=== PATIENT | male | born 1965 | race Caucasian/White ===

== ENCOUNTER 2018-07-05 06:03 | Day surgery (SDC) | payer OTHER ==
[~2018-07-05] VITALS: Ht 172.7 cm; Wt 89.8 kg
[2018-07-05] MEDS ORDERED: PROCHLORPERAZINE 10 MG/2 ML VIAL. IV PRN (07:00)
[2018-07-05] MEDS ORDERED: MORPHINE SULFATE 4 MG/ML VIAL. IV PRN (07:00)
[2018-07-05] MEDS ORDERED: fentaNYL PF VIAL 100 MCG/2 ML VIAL IV PRN (07:00)
[2018-07-05] MEDS ORDERED: LIDOCAINE 1% PF 2 ML VIAL. ID PRN (07:00)
[2018-07-05] MEDS ORDERED: ONDANSETRON PF 4 MG/2 ML VIAL. IV PRN (07:00)
[2018-07-05] MEDS ORDERED: IV RINGERS,LACTATED 1000ML 1,000 ML IV SCH (07:00)
[2018-07-05] MEDS ORDERED: HYDROmorphone 2 MG/ML VIAL IV PRN (07:00)
[2018-07-05] MEDS ORDERED: BUPIVACAINE-EPI 0.25%-1:200000 MPF 30 ML VIAL. ONE (07:05)
[2018-07-05] MEDS ORDERED: ONDANSETRON PF 4 MG/2 ML VIAL. ONE (07:40)
[2018-07-05] MEDS ORDERED: PROPOFOL 20 ML IV ONE ×2 (07:40→09:20)
[2018-07-05] MEDS ORDERED: fentaNYL PF VIAL 100 MCG/2 ML VIAL ONE (07:40)
[2018-07-05] MEDS ORDERED: LIDOCAINE 2% PF Vial for OR 5 ML VIAL. ONE (07:40)
[2018-07-05] MEDS ORDERED: DEXAMETHASONE SOD PHOS 20 MG/5 ML VIAL. ONE (07:40)
[2018-07-05] MEDS ORDERED: ROCURONIUM 50 MG/5 ML VIAL. ONE (07:40)
[2018-07-05] MEDS ORDERED: MIDAZOLAM HCL/PF 2 MG/2 ML VIAL. ONE (07:41)
[2018-07-05] MEDS ORDERED: PHENYLEPHRINE 10 MG/ML VIAL. ONE (08:25)
[2018-07-05] MEDS ORDERED: FAMOTIDINE 20 MG/2 ML VIAL ONE (08:28)
[2018-07-05] MEDS ORDERED: NEOSTIGMINE 10 MG/10 ML VIAL. ONE (08:51)
[2018-07-05] MEDS ORDERED: GLYCOPYRROLATE 1 MG/5 ML VIAL. ONE (08:51)
[2018-07-05] MEDS ORDERED: DESFLURANE 61 TO 120 MINUTES IH ONE (09:10)
--- NOTE | 2018-07-05 09:11 | PDOC4 ---
Operative Note Operative Note Date: 07/05/2018 Preoperative diagnosis: Ventral hernia with diastases Operative diagnosis: Same Procedure: Robotic-assisted laparoscopic ventral hernia repair with mesh Surgeon: Basim Dictation: Patient is a 53-year-old male who is complaining of a bulge just above his umbilicus in the midline of his abdomen procedure of robotic-assisted laparoscopic ventral hernia repair with mesh was explained to the patient in detail risk benefits were also discussed including bleeding infection injury to intra-abdominal contents possibly necessitating further or open operations alternatives to this procedure also discussed with the patient who seemed to understand and gave both verbal and written consent the procedure performed. Patient was taken to the operating room placed supine position general anesthesia was initiated was patient was asleep and intubated the abdomen was prepped and draped usual sterile fashion using ChloraPrep and area in the left upper quadrant was injected with quarter percent Marcaine with epinephrine incision was made with a blade scalpel and a 5 mm visible was placed under direct visualization into the abdomen creating pneumoperitoneum the abdomen was inspected and was noted that he had a very small hernia defect at the bolts and some of this bulge is related to diastases. The da Chris port was placed in the left midline a second da Chris port was placed in the left lower abdomen and the Visiport was changed out to da Chris port at this point the robot was brought in and docked [facility] to the robotic console using grasper and Endo Ralph scissors the fascia was cleared off of its hair tissues around the hernia defect. The hernia defect was then closed with a running 20V LOC permanent suture. Bard ventral ST mesh was then placed over the hernia defect is sewn into place with a running 20V lock absorbable suture. After this was complete sutures are removed from the abdomen the pneumoperitoneum was reduced all ports removed the da Chris robot undocked. All port sites closed with 4 septic or Monocryl Mastisol Steri-Strips island dressings were applied. Patient was awakened and expected in operating room taken recovery in stable condition all sponge instrument needle counts listed as correct assessment of blood loss 5 mL LEIA NAIDU MD Jul 05, 2018 9:11 am
--- NOTE | 2018-07-05 09:12 | DISCH ---
DISCHARGE INSTRUCTIONS Condition on Discharge Condition on Discharge: Stable Activity After Discharge Activity Instructions for Disc: Avoid exertion Other activity instructions: Lifting more 20 pounds for 2 weeks Diet after Discharge Diet after Discharge: Regular Wound Incision Care Other wound/incision instructi: May shower in 24 hours Contacting the after DC Call your doctor for: If your condition worsens Follow-Up Follow up with: Dr. Naidu 2 weeks LEIA NAIDU MD Jul 05, 2018 9:12 am
[2018-07-05] MEDS ORDERED: KETOROLAC 30 MG/ML INJ FOR OR. INJ ONE (09:33)
[2018-07-05] MEDS ORDERED: oxyCODONE/APAP 5/325 1 TAB TABLET PO ONE ×2 (09:45)
[2018-07-05] MEDS ORDERED: OXYC1TAB15 PO (09:53)
[2018-07-05] MEDS: fentaNYL PF VIAL 100 MCG/2 ML VIAL IV PRN ×2 (10:10→10:27)
[2018-07-05 11:04] VITALS: BP 106/63
== END 2018-07-05 11:33 | disposition home or self-care (01) ==
LOC: SURG 06:03
PROVIDERS: ATTEND Surgery
DX: K43.9 Ventral hernia without obstruction or gangrene (principal); M62.08 Separation of muscle (nontraumatic), other site; Z98.890 Other specified postprocedural states; F17.210 Nicotine dependence, cigarettes, uncomplicated; Z72.89 Other problems related to lifestyle
CPT/HCPCS: 49652; A7015; C1781; C1782; J0696; J0780; J1100; J1885; J2001; J2250; J2405; J2704; J2710; J3010; J3490; J7120; S2900